=== PATIENT | female | born 1995 ===

== ENCOUNTER 2016-10-07 17:09 | Emergency (ER) | payer OTHER ==
[~2016-10-07] VITALS: Ht 170.2 cm; Wt 70.4 kg
[2016-10-07 17:36] VITALS: TEMP 37.1; Ht 170.2 cm; Wt 70.4 kg
--- NOTE | 2016-10-07 17:48 | EMERGENCY ROOM VISIT NOTE ---
History Report prepared by Randolph: Dom Evans Under the Supervision of: Dr. Ayden Banks M.D. First contact with patient: 17:24 Chief Complaint: MENTAL HEALTH EVALUATION Stated Complaint: [facility] History of Present Illness The patient is a 20 year old female who presents to the Emergency Room with complaints of worsening sadness that started over the past few days. She denies any thoughts of hurting herself. The patient states that she has been feeling depressed recently, and this morning she woke up feeling that she does not want to be here anymore, and just wants to go home. The patient is a student at [employer], and her parents live in [place]. She also notes that she has been sleeping more than she used to, and she says that it is not "good" sleep. The patient notes no history of depression. She says classes are going okay. She denies any relationship issues, and denies that anybody is hurting her. She is not cutting or hurting herself. The patient has not seen a therapist, and wants to see one but she says it takes a while to get an appointment. The patient does not take any medications on a daily basis. The patient occasionally drinks alcohol but does not use any drugs. The patient has not drank any alcohol today. She does have hyperthyroidism, and it was last checked over the summer. She does not take any medications for it. The patient denies any chance of . Source of History: patient Onset: Over past few days Position: other (global - sadness) Timing: worsening Note: Associated symptoms: Feeling depressed recently, sleeping more than used to. Denies any thoughts of hurting herself, denies cutting herself. Review of Systems See HPI for pertinent positives & negatives. A total of 10 systems reviewed and were otherwise negative. Past Medical & Surgical Medical Problems: (1) Hyperthyroidism (2) Suicidal ideation Family History No pertinent family history Social History Alcohol Use: occasionally Drug Use: none Marital Status: single Housing Status: lives with roommate Occupation Status: [employer] student Current/Historical Medications No Active Prescriptions or Reported Meds Allergies Coded Allergies: No Known Allergies (Unverified , 10/07/16) Physical Exam Vital Signs Date Time Temp Pulse Resp B/P Pulse Ox O2 Delivery O2 Flow Rate FiO2 10/07/16 22:18 114 16 110/68 99 Room Air 10/07/16 17:36 37.1 125 20 137/68 99 Room Air Physical Exam GENERAL: Patient is well appearing and in no acute distress. HEENT: No acute trauma, normocephalic atraumatic, mucous membranes moist, no nasal congestion, no scleral icterus. NECK: No stridor, no adenopathy, no meningismus, trachea is midline. LUNGS: No dyspnea. Clear to auscultation and equal bilaterally. No wheeze, no rhonchi. HEART: Regular rate and rhythm. No murmurs, rubs, gallops appreciated. EXTREMITIES: Normal motion all extremities, no cyanosis, no edema. NEUROLOGIC: Alert and oriented, no acute motor or sensory deficits, no focal weakness, cranial nerves grossly intact. SKIN: No rash, no jaundice, no diaphoresis. PSYCH: Admits sadness but not overt depression. No suicidal or homicidal ideation. No hallucinations. Medical Decision & Procedures Laboratory Results 10/07/16 18:40 Red Blood Count 4.40, Mean Corpuscular Volume 86.4, Mean Corpuscular Hemoglobin 29.8, Mean Corpuscular Hemoglobin Concent 34.5, Mean Platelet Volume 10.1, Neutrophils (%) (Auto) 81.4, Lymphocytes (%) (Auto) 13.9, Monocytes (%) (Auto) 3.9, Eosinophils (%) (Auto) 0.4, Basophils (%) (Auto) 0.2, Neutrophils # (Auto) 11.27, Lymphocytes # (Auto) 1.93, Monocytes # (Auto) 0.54, Eosinophils # (Auto) 0.05, Basophils # (Auto) 0.03 10/07/16 18:40 Test 10/07/16 00:00 10/07/16 18:40 Urine Color RED Urine Appearance SLIGHTLY CLOUDY (CLEAR) Urine pH 7.0 (4.5-7.5) Urine Specific [place] 1.019 (1.000-1.030) Urine Protein NEG (NEG) Urine Glucose (UA) NEG (NEG) Urine Ketones TRACE (NEG) Urine Occult Blood 3+ (NEG) Urine Nitrite NEG (NEG) Urine Bilirubin NEG (NEG) Urine Urobilinogen NEG (NEG) Urine Leukocyte Esterase TRACE (NEG) Urine WBC (Auto) 10-30 /hpf (0-5) Urine RBC (Auto) >30 /hpf (0-4) Urine Hyaline Casts (Auto) 1-5 /lpf (0-5) Urine Epithelial Cells (Auto) >30 /lpf (0-5) Urine Bacteria (Auto) NEG (NEG) Urine Test NEG (NEG) Urine Opiates Screen NEG (NEG) Urine Methadone, Qualitative NEG (NEG) Urine Barbiturates NEG (NEG) Urine Phencyclidine (PCP) Level NEG (NEG) Ur Amphetamine/Methamphetamine NEG (NEG) MDMA (Ecstasy) Screen NEG (NEG) Urine Benzodiazepines Screen NEG (NEG) Urine Cocaine Metabolite NEG (NEG) Urine Marijuana (THC) NEG (NEG) White Blood Count 13.85 K/uL (4.8-10.8) Red Blood Count 4.40 M/uL (4.2-5.4) Hemoglobin 13.1 g/dL (12.0-16.0) Hematocrit 38.0 % (37-47) Mean Corpuscular Volume 86.4 fL (80-100) Mean Corpuscular Hemoglobin 29.8 pg (25-34) Mean Corpuscular Hemoglobin Concent 34.5 g/dl (32-36) Platelet Count 319 K/uL (130-400) Mean Platelet Volume 10.1 fL (7.4-10.4) Neutrophils (%) (Auto) 81.4 % Lymphocytes (%) (Auto) 13.9 % Monocytes (%) (Auto) 3.9 % Eosinophils (%) (Auto) 0.4 % Basophils (%) (Auto) 0.2 % Neutrophils # (Auto) 11.27 K/uL (1.4-6.5) Lymphocytes # (Auto) 1.93 K/uL (1.2-3.4) Monocytes # (Auto) 0.54 K/uL (0.11-0.59) Eosinophils # (Auto) 0.05 K/uL (0-0.5) Basophils # (Auto) 0.03 K/uL (0-0.2) RDW Standard Deviation 45.5 fL (36.4-46.3) RDW Coefficient of Variation 14.4 % (11.5-14.5) Immature Granulocyte % (Auto) 0.2 % Immature Granulocyte # (Auto) 0.03 K/uL (0.00-0.02) Anion Gap 14.0 mmol/L (3-11) Est Creatinine Clear Calc Drug Dose 98.1 ml/min Estimated GFR () 108.1 Estimated GFR (Non- 93.3 BUN/Creatinine Ratio 12.0 (10-20) Calcium Level 9.3 mg/dl (8.5-10.1) Total Bilirubin 0.2 mg/dl (0.2-1) Aspartate Amino Transf (AST/SGOT) 11 U/L (15-37) Alanine Aminotransferase (ALT/SGPT) 16 U/L (12-78) Alkaline Phosphatase 56 U/L (45-117) Total Protein 8.6 gm/dl (6.4-8.2) Albumin 4.3 gm/dl (3.4-5.0) Globulin 4.3 gm/dl (2.5-4.0) Albumin/Globulin Ratio 1.0 (0.9-2) Thyroid Stimulating Hormone (TSH) 0.596 uIu/ml (0.300-4.500) Salicylates Level < 1.7 mg/dl (2.8-20) Acetaminophen Level < 2 ug/ml (10-30) Ethyl Alcohol mg/dL < 3.0 mg/dl (0-3) Laboratory results as reviewed by me. ED Course 1730: The patient was evaluated in room A8. A complete history and physical exam was performed. 0: I asked case management to see the patient. 1822: I reevaluated the patient and she admits that she is suicidal, and that she does not want to be in this world anymore. 1927: I reevaluated the patient and she is feeling okay. She is okay with inpatient treatment. 2023: The patient is being accepted to the [facility] facility. Medical Decision Differential: Mood Disorder, Overdose, Infectious, Electrolyte Abnormality, Cardiac, Hepatic, Endocrine, Toxicologic, Neurologic, amongst other pathologies entertained. 20 yr old female arrives with request to talk to mental health professional. Initially she was quite about what was going on but opened up more to Case Management admitting severe depression and wishing she was no longer alive. Medically clear. History of hyperthyroid though labs look good. She was accepted to [facility] for further inpatient treatment. Impression Primary Impression: Depression Additional Impression: Suicidal ideation Scribe Attestation The scribe's documentation has been prepared under my direction and personally reviewed by me in its entirety. I confirm that the note above accurately reflects all work, treatment, procedures, and medical decision making performed by me. Departure Information Dispostion Mental Health Acute Care Prescriptions No Active Prescriptions or Reported Meds Referrals No Doctor, Assigned (PCP) Forms HOME CARE DOCUMENTATION FORM, IMPORTANT VISIT INFORMATION Patient Instructions My [facility] Problem Qualifiers Primary Impression: Depression Depression Type: major depressive disorder Major depression recurrence: single episode Active/Remission status: currently active Major depression episode severity: severe Psychotic features: without psychotic features Qualified Codes: F32.2 - Major depressive disorder, single episode, severe without psychotic features
[2016-10-07 18:56] LABS: BASO % 0.2 %; BASO ABS # 0.03 K/uL (0-0.2); COMPLETE YES; EOS % 0.4 %; IG% 0.2 %; LYMPH % 13.9 %; LYMPH ABS # 1.93 K/uL (1.2-3.4); MEAN CELL VOLUME 86.4 fL (80-100); MEAN CORPUSCULAR HEMOGLOBIN 29.8 pg (25-34); MEAN CORPUSCULAR HGB CONC 34.5 g/dl (32-36); MEAN PLATELET VOLUME 10.1 fL (7.4-10.4); MONO % 3.9 %; NEUT % 81.4 %; PLATELET COUNT 319 K/uL (130-400); WHITE BLOOD COUNT 13.85 K/uL (4.8-10.8)
[2016-10-07 19:10] LABS: CALCIUM 9.3 mg/dl (8.5-10.1); CREATININE 0.89 mg/dl (0.60-1.20); POTASSIUM 3.2 mmol/L (3.5-5.1)
[2016-10-07 19:12] LABS: URINE BILIRUBIN NEG (NEG); URINE EPITHELIAL CELL AUTO >30 /lpf (0-5); URINE NITRITE NEG (NEG); URINE SPECIFIC GRAVITY 1.019 (1.000-1.030); UROBILINOGEN NEG (NEG); ZZUR CULT IF INDIC CLEAN CATCH YES
[2016-10-07 19:14] LABS: MANUAL MICROSCOPIC REQUIRED? NO; REVIEW REQ? NO; URINE APPEARANCE SLIGHTLY CLOUDY (CLEAR); URINE COLOR RED
[2016-10-07 19:21] LABS: THYROID STIMULATING HORMONE 0.596 uIu/ml (0.300-4.500)
[2016-10-07 19:27] LABS: ACETAMINOPHEN < 2 ug/ml (10-30)
[2016-10-07 19:41] LABS: BENZODIAZEPINE, URINE NEG (NEG); COCAINE,URINE NEG (NEG); PHENCYCLIDINE, URINE NEG (NEG)
[2016-10-07 22:18] VITALS: BP 110/68; PULSE 114; O2SAT 99
--- NOTE | 2016-10-09 11:31 | Pharmacy Progress Note ---
ED Pharmacist Culture FollowUp Date of Service: Oct 09, 2016. Patient's urine cx from 10/07/16 is growing Grp C beta-hemolytic strep. The patient was not seen for urinary symptoms or for c/o infection. She had no urinary symptoms reported on the day of her ED visit. The UA did have > 30 epis , therefore this cultured organism could reflect contamination. This could also reflect asymptomatic bacteruria, however she is not , immunocompromised or undergoing planned urologic procedure, therefore there is no indication to treat.
== END 2016-10-07 22:28 ==
LOC: C.EDB 17:10 → C.EDA 22:28
DX: F32.9 Major depressive disorder, single episode, unspecified (principal); R45.851 Suicidal ideations; E05.90 Thyrotoxicosis, unspecified without thyrotoxic crisis or storm